=== PATIENT | female | born 2000 | race Caucasian/White ===

== ENCOUNTER 2020-05-05 08:42 | Emergency (ER) | payer OTHER ==
[2020-05-05 09:28] LABS: #Basophils 0.1 thou/uL (0.0-0.2); #Eosinphils 0.1 thou/uL (0.0-0.7); #Lymphocytes 2.1 thou/uL (1.20-3.40); #Monocytes 0.6 thou/uL (0.11-0.59); #Neutrophils 8.2 thou/uL (1.40-6.50); %Basophils 0.5 % (0.0-1.0); %Eosinophils 1.2 % (0.0-10.0); %Lymphocytes 18.8 % (21.0-51.0); %Monocytes 5.3 % (0.0-10.0); %Neutrophils 74.2 % (42.0-75.0); Hemoglobin 14.2 g/dL (12.0-16.0); Mean Corpuscular HGB CONC 32.6 g/dL (32.0-36.0); Mean Corpuscular Hemoglobin 30.8 pg (27.0-31.0); Mean Corpuscular Volume 94.4 fL (78.0-98.0); Mean Platelet Volume 9.5 fL (7.4-10.4); Platelet Count 211 thou/uL (130-400); RBC Distribution Width 12.5 % (11.5-14.5); Red Blood Cell (RBC) Count 4.61 mill/uL (4.20-5.40); White Blood Cell (WBC) Count 11.1 thou/uL (4.8-10.8)
[2020-05-05 09:33] LABS: BHCG - Serum Negative (NEGATIVE); Pregs Control Background? CLEAR/WHITE (CLR/WHITE); Pregs Control Bar Appear? YES (CONTROL BAR)
[2020-05-05 09:35] LABS: Bilirubin Negative (Negative); Blood, Urine 1+ (Negative); Clarity Clear (Clear); Glucose, Urine (Dipstick) Normal (Negative); Ketone, Urine Negative (Negative); Leukocyte 250 Leu/uL (Negative); Nitrite Negative (Negative); Protein, Urine (Dipstick) Negative (Neg-Trace); Specific Gravity, Urine 1.018 (1.002-1.036); Squamous Epithelial 0-3 HPF (0-3); Urobilinogen Normal mg/dL (Less than 2)
[2020-05-05 09:50] LABS: Bacteria/HPF 2+ HPF (None Seen); WBC/HPF 21-50 HPF (0-3)
[2020-05-05 09:52] LABS: ALT (SGPT) 10 U/L (8-55); AST (SGOT) 14 U/L (5-34); Albumin 4.4 g/dL (3.5-5.0); Alkaline Phosphatase 56 U/L (40-110); Anion Gap 12 mmol/L (10-20); BUN (Urea Nitrogen) 10 mg/dL (7.0-18.7); Bilirubin, Total 0.6 mg/dL (0.2-1.2); Calc. Creatinine Clearance 0 mL/min (70-130); Calcium 9.1 mg/dL (7.8-10.44); Carbon Dioxide 23 mmol/L (22-29); Chloride 108 mmol/L (98-107); Estimated GFR-MDRD 83; Globulin 2.9 g/dL (2.4-3.5); Glucose 89 mg/dL (70-105); Potassium 3.6 mmol/L (3.5-5.1); Protein, Total 7.3 g/dL (6.0-8.3); Sodium 139 mmol/L (136-145)
--- NOTE | 2020-05-05 10:12 | CT ---
Exam: Abdomen CT without contrast Pelvic CT without contrast HISTORY: Sharp umbilical pain. COMPARISON: None FINDINGS: Abdomen CT: Lung bases:Clear Heart size: Normal heart size. No significant pericardial fluid Aorta: Normal caliber. No periaortic fat stranding Solid organs: Lack of IV contrast limits evaluation. Grossly no solid organ abnormality Lymph nodes: No gastrohepatic, retrocrural or periportal lymphadenopathy. There are enlarged lymph no darien in the right lower quadrant mesentery. Barrel Raiser enlarged lymph node measures 0.8 cm. Correlate for mesenteric lymphadenitis. Gallbladder: No CT evidence of cholelithiasis or cholecystitis Mesentery: No mass, free air or free fluid Kidneys: Bilaterally, no hydronephrosis, nephrolithiasis or perinephric fat stranding. Bilateral uret ers have a normal caliber. No hydroureter, periureteral fat stranding or ureterolithiasis. Alimentary canal: Limited evaluation by the lack of oral contrast. No evidence of a bowel obstruction . Normal ileocecal junction. Normal caliber appendix. Scattered fecal material in a nondistended, nondilated colon. CT PELVIS: No mass, adenopathy, free air or free fluid. Limited evaluation the uterus and adnexal structures. N o obvious abnormality Urinary bladder: No mucosal abnormality. Decreased distention results in limited evaluation. Osseous structures: No lytic or blastic lesions IMPRESSION: 1. No evidence of obstructive uropathy. 2. No evidence of a umbilical hernia 3. Normal caliber appendix. 4. Enlarged mesenteric lymph nodes. Correlate for mesenteric lymphadenitis.
[2020-05-05] MEDS ORDERED: Ketorolac Tromethamine 30 MG/ML VIAL ONE (10:13)
== END 2020-05-05 10:55 | disposition home or self-care (01) ==
LOC: ERS 08:42
DX: I88.0 Nonspecific mesenteric lymphadenitis (principal); N39.0 Urinary tract infection, site not specified; F41.9 Anxiety disorder, unspecified; F32.9 Major depressive disorder, single episode, unspecified
CPT/HCPCS: 74176; 80053; 81003; 81015; 83605; 83690; 84703; 85025; 96374; J1885